=== PATIENT | male | born 1975 | race Caucasian/White ===

== ENCOUNTER 2017-07-23 17:25 | Emergency (ER) | payer BC ==
[~2017-07-23] VITALS: Ht 177.8 cm; Wt 83.9 kg
[~2017-07-23 17:25] MED LIST: CHANTIX1 EACH PO; CYCLOBENZAPRINE10 MG PO; LORAZEPAM0.5 MG PO; OXYCODONE HCL15 MG PO; PERCOCET 10-321 EACH PO; TRAZODONE HCL100 MG PO; ZOLOFT25 MG PO
== END 2017-07-23 21:18 | disposition home or self-care (01) ==
LOC: ED 17:25
DX: G89.18 Other acute postprocedural pain (principal); M25.551 Pain in right hip; Z87.891 Personal history of nicotine dependence; Z88.2 Allergy status to sulfonamides; Z79.899 Other long term (current) drug therapy; Z96.641 Presence of right artificial hip joint
CPT/HCPCS: 73502; 96372; 99283; J1170; J1885

== ENCOUNTER 2020-09-06 06:39 | Emergency (ER) | payer BC ==
[~2020-09-06] VITALS: Ht 177.8 cm; Wt 91.6 kg
[2020-09-06] MEDS ORDERED: SPIRIVA RESPIMAT4 GM INH (06:49)
[2020-09-06] MEDS ORDERED: VENTOLIN HFA18 GM INH (06:50)
[2020-09-06] MEDS ORDERED: PREDNISONE20 MG PO (08:59)
--- NOTE | 2020-09-06 13:49 | EKG ---
[facility] [address] [facility] [place], [place] [address] Signed Normal sinus rhythm Nonspecific T wave abnormality Abnormal ECG No previous ECGs available Confirmed by NAVEEN BUSTILLOS DO ([id number]) on 09/06/2020 1:49:44 PM Electronically Signed By: NAVEEN BUSTILLOS DO 09/06/20 1349 PATIENT NAME: MARY KAY JACKMAN Electrocardiogram DATE OF : 75 PHYSICIAN: NAVEEN BUSTILLOS DO REPORT #: [id number] REPORT IS CONFIDENTIAL AND NOT TO BE RELEASED WITHOUT AUTHORIZATION
== END 2020-09-06 09:07 | disposition home or self-care (01) ==
LOC: ED 06:39
DX: J40 Bronchitis, not specified as acute or chronic (principal); Z88.2 Allergy status to sulfonamides; Z20.822 Contact with and (suspected) exposure to COVID-19
CPT/HCPCS: 71045; 93005; 93010; 94640; 99285-25; C9803; J1100; U0003

== ENCOUNTER 2024-03-29 07:25 | Emergency (ER) | payer BC ==
[~2024-03-29] VITALS: Ht 177.8 cm; Wt 95.6 kg
[~2024-03-29 07:25] MED LIST changes: +BUSPIRONE HCL5 MG PO; +HYDROCODON-ACE1 EA10 PO; +PREDNISONE20 MG PO; +SPIRIVA RESPIMAT4 GM INH; +VENTOLIN HFA18 GM INH
[2024-03-29] MEDS ORDERED: OXYCODONE-ACET1 EAC1 PO (07:44)
[2024-03-29] MEDS ORDERED: BUPROPION XL150 MG PO (07:45)
[2024-03-29] MEDS ORDERED: HYDROXYZINE HCL25 MG PO (07:45)
[2024-03-29] MEDS ORDERED: HYDROCODON-ACE1 EAC8 PO (07:45)
[2024-03-29] MEDS ORDERED: HYDROmorphone HCL 1 MG/ML SYR IM ONE (08:15)
[2024-03-29] MEDS ORDERED: OXYCODONE HCL 5 MG TAB PO ONE ×3 (09:30→09:45)
[2024-03-29] MEDS ORDERED: NARCAN4 MG NAS (09:30)
[2024-03-29] MEDS ORDERED: ONDANSETRON ODT8 MG PO (09:30)
[2024-03-29] MEDS ORDERED: OXYCODONE HCL5 MG PO (09:30)
[2024-03-29 09:55] VITALS: BP 165/107
== END 2024-03-29 09:55 | disposition home or self-care (01) ==
LOC: ED 07:25
DX: G89.18 Other acute postprocedural pain (principal); M25.562 Pain in left knee; Z88.2 Allergy status to sulfonamides; Z79.899 Other long term (current) drug therapy
CPT/HCPCS: 73560; 96372; 99283; A9270; J1171